=== PATIENT | male | born 1985 | race American Indian/Alaskan Native ===

== ENCOUNTER 2018-06-30 01:48 | Emergency (ER) | payer OTHER ==
[2018-06-30] MEDS ORDERED: BOOSTRIX IM ONE (01:52)
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
[2018-06-30] MEDS ORDERED: ATIVAN IV ONE (02:10)
[2018-06-30] MEDS ORDERED: NACL 0.9% 1000 ML 1,000 ML ONE (02:17)
[2018-06-30] MEDS ORDERED: NACL 0.9% 1000 ML 1,000 ML IV ONE (02:20)
[2018-06-30 02:22] LABS: Basophils # (Auto) 0.1 K/mm3 (0.0-0.1); Basophils % (Auto) 0.5 % (0.0-1.8); Eosinophils # (Auto) 0.1 K/mm3 (0.0-0.4); Eosinophils % (Auto) 0.7 % (0.0-4.3); Hematocrit 41.4 % (35.5-45.6); Hemoglobin 13.9 gm/dl (11.8-15.2); Lymphocytes # (Auto) 2.1 K/mm3 (1.2-5.4); Lymphocytes % (Auto) 16.4 % (13.4-35.0); Mean Corpuscular HGB Conc 34 % (32-34); Mean Corpuscular Volume 96 fl (84-94); Monocytes # (Auto) 0.6 K/mm3 (0.0-0.8); Monocytes % (Auto) 4.3 % (0.0-7.3); Platelet Count 163 K/mm3 (140-440); Red Blood Count 4.31 M/mm3 (3.65-5.03); Red Cell Distribution Width 13.6 % (13.2-15.2)
[2018-06-30 02:48] LABS: Albumin 4.3 g/dL (3.9-5); BUN/Creatinine Ratio 8; Blood Urea Nitrogen 10 mg/dL (9-20); Calcium 9.3 mg/dL (8.4-10.2); Hemolysis Index 95
[2018-06-30 02:58] LABS: Alanine Aminotransferase 20 units/L (7-56)
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
[2018-06-30 05:50] VITALS: BP 122/61
== END 2018-06-30 06:01 ==
LOC: EEVIPCON 01:48 → ED 01:48
DX: S01.81XA Laceration without foreign body of other part of head, initial encounter (principal); F10.120 Alcohol abuse with intoxication, uncomplicated; X58.XXXA Exposure to other specified factors, initial encounter; Y93.9 Activity, unspecified; Y92.89 Other specified places as the place of occurrence of the external cause; Y99.8 Other external cause status
CPT/HCPCS: 36415; 70450; 70486; 72125; 73120; 73590; 80053; 85025; 90471; 90715; 96374; 99284; G0480; J2060; J7030; 80320

== ENCOUNTER 2021-08-18 10:44 | Outpatient (CLI) | payer OTHER ==
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
--- NOTE | 2021-08-18 16:18 | XRay Report ---
Left femur-4 views INDICATION: LEFT FEMUR PAIN. COMPARISON: None available. IMPRESSION: Old healed intertrochanteric fracture without hardware complication. No acute abnormalit y identified. Normal alignment. Mild degenerative arthrosis in the left hip. Soft tissues are unrem arkable. Signer Name: Reginaldo Vo MD Signed: 08/18/2021 4:13 PM Workstation Name: [id number]
== END 2021-08-18 10:45 | disposition home or self-care (01) ==
LOC: XRAY 10:44
PROVIDERS: ATTEND Internal Medicine
DX: M19.042 Primary osteoarthritis, left hand (principal); M16.12 Unilateral primary osteoarthritis, left hip